=== PATIENT | female | born 2005 ===

== ENCOUNTER 2024-05-18 22:40 | Emergency (ER) | payer SELFPAY ==
[2024-05-18 22:52] VITALS: BP 126/75; PULSE 101; RESP 20; TEMP 36.7; O2SAT 100; BMI 37.6
== END 2024-05-19 02:35 | disposition left against medical advice (07) ==
PROVIDERS: Emergency Provider Emergency Medicine
DX: R10.2 Pelvic and perineal pain (principal); Z53.21 Procedure and treatment not carried out due to patient leaving prior to being seen by health care provider
CPT/HCPCS: 99281